=== PATIENT | male | born 1995 | race African-American/Black ===

== ENCOUNTER 2019-02-19 12:25 | Emergency (ER) | payer OTHER ==
[~2019-02-19] VITALS: Ht 177.8 cm; Wt 86.2 kg
[2019-02-19 13:09] LABS: ABSOLUTE NEUTROPHILS 3.2 thou/uL (1.4-8.2); BASOPHILS 1.2 % (0.0-2.0); EOSINOPHILS 3.5 % (0.0-3.0); HEMATOCRIT 42.4 % (42.0-52.0); HEMOGLOBIN 14.5 gm/dL (14.0-18.0); LYMPHOCYTES 39.8 % (24.0-44.0); MCH 27.5 pg (26.0-34.0); MCHC 34.2 g/dL (28.0-37.0); MCV 80.3 fL (80.0-100.0); MONOCYTES 7.7 % (1.0-8.0); PLATELET COUNT 360 thou/uL (150-400); POLYS 47.8 % (36.0-66.0); RBC 5.29 mil/uL (4.50-6.00); RDW 13.7 % (10.5-14.5); WBC 6.6 thou/uL (4.0-11.0)
[2019-02-19 13:12] LABS: ANION GAP 6 mmol/L (7-16); BUN 10 mg/dL (7-18); CALCIUM 9.6 mg/dL (8.5-10.1); CHLORIDE 103 mmol/L (98-107); CO2 31 mmol/L (21-32); CREATININE 1.3 mg/dL (0.7-1.3); GLUCOSE 105 mg/dL (74-106); POTASSIUM 3.8 mmol/L (3.5-5.1); SODIUM 140 mmol/L (136-145)
[2019-02-19 13:22] LABS: ALBUMIN 4.5 g/dL (3.4-5.0); LIPASE 194 U/L (73-393); SGOT 25 U/L (15-37); SGPT 42 U/L (30-65); TOTAL BILIRUBIN 0.8 mg/dL (<0.1-1.0); TOTAL PROTEIN 8.5 g/dL (6.4-8.2); TROPONIN-I <0.06 ng/mL (<0.06)
[2019-02-19 13:59] LABS: URINE BILIRUBIN NEGATIVE (Negative); URINE BLOOD NEGATIVE (Negative); URINE CLARITY CLEAR; URINE COLOR YELLOW; URINE GLUCOSE-RANDOM* NEGATIVE (Negative); URINE KETONES NEGATIVE (Negative); URINE LEUKOCYTES-REFLEX NEGATIVE (Negative); URINE NITRITE-REFLEX NEGATIVE (Negative); URINE PROTEIN (DIPSTICK) NEGATIVE (Negative); URINE SPECIFIC GRAVITY <= 1.005 (1.005-1.035); URINE UROBILINOGEN 0.2 E.U./dl (0.2-1.0)
[2019-02-19 14:08] LABS: AMP/METHAMP Negative (Negative); BARBITURATES Negative (Negative); BENZODIAZEPINES Negative (Negative); COCAINE Negative (Negative); METHADONE Negative (Negative); OPIATES Negative (Negative); PCP Negative (Negative)
[2019-02-19 14:30] VITALS: BP 138/72
--- NOTE | 2019-02-20 11:39 | EKG ---
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: [facility] : 1995 Requested By: Geno Stafford Order Number: [id number] MD: Quinton Escudero Measurements Intervals [place] Rate: 117 P: 33 MO: 165 QRS: 55 QRSD: 95 T: -14 QT: 320 QTc: 447 Interpretive Statements Sinus tachycardia Probable left atrial enlargement Nonspecific T-wave abnormalities No previous ECG available for comparison Electronically Signed On 02-20-2019 11:39:39 CDT by Quinton Escudero [email or web address] <ELECTRONICALLY SIGNED> By: Quinton Escudero MD 02/20/19 1139 1229 1229 Quinton Escudero MD /WENDY
== END 2019-02-19 14:35 | disposition home or self-care (01) ==
LOC: ER 12:25
PROVIDERS: Physician Assistant
DX: R07.9 Chest pain, unspecified (principal); R00.0 Tachycardia, unspecified

== ENCOUNTER 2019-03-02 07:31 | Emergency (ER) | payer OTHER ==
[~2019-03-02] VITALS: Ht 177.8 cm; Wt 86.2 kg
[2019-03-02] MEDS ORDERED: NOHOMEMEDICATIONS (07:47)
[2019-03-02 08:49] LABS: TROPONIN-I <0.06 ng/mL (<0.06)
[2019-03-02] MEDS ORDERED: NAPROSYN500 MG PO (09:36)
[2019-03-02 09:41] VITALS: BP 137/79
--- NOTE | 2019-03-02 17:34 | EKG ---
[address] [address] ELECTROCARDIOGRAM REPORT Name: TERRA BECERRA [facility] [id number] Admission: 03/02/19 Attend Phys: Discharge: 03/02/19 Date of : [birth year] Report #: [id number] THIS REPORT FOR: //name// [facility] ED Test Date: 2019-03-02 Test Time: 07:37:58 Pat Name: TERRA BECERRA Department: Room: Gender: M Referral Manager: GINO : 1995 Requested By: Meet Ashley Order Number: [id number] MD: Italo Burris Measurements Intervals [place] Rate: 82 P: 3 WI: 123 QRS: 56 QRSD: 94 T: 9 QT: 367 QTc: 429 Interpretive Statements Sinus rhythm No significant abnormality Compared to ECG 02/19/2019 12:29:38 Sinus tachycardia no longer present Electronically Signed On 03-02-2019 17:34:15 CDT by Italo Burris [email or web address] <ELECTRONICALLY SIGNED> By: Italo Burris MD, [facility] 03/02/19 1734 0737 07 Italo Burris MD, FACC /EPI
== END 2019-03-02 09:41 | disposition home or self-care (01) ==
LOC: ER 07:31
PROVIDERS: Emergency Medicine
DX: R07.89 Other chest pain (principal); D57.3 Sickle-cell trait